=== PATIENT | male | born 1955 | race African-American/Black ===

== ENCOUNTER 2020-02-26 13:35 | Inpatient (IN) | payer MEDICAID, OTHER ==
[~2020-02-26] VITALS: Ht 177.8 cm; Wt 87.0 kg
[2020-02-26] MEDS ORDERED: IPRATROPIUM BROM 0.5 MG/2.5ML INH SOL NEB ONE (13:45)
[2020-02-26] MEDS ORDERED: methylPREDNISolone SOD SUCC 125 MG/2 ML VL IV ONE (13:45)
[2020-02-26] MEDS ORDERED: ALBUTEROL SULF 2.5 MG/0.5ML(0.5%) NEB SOLN NEB ONE (13:45)
[2020-02-26] MEDS ORDERED: SODIUM CHLORIDE 0.9% 1,000 ML IV ONE (13:45)
[2020-02-26] MEDS ORDERED: cefTRIAXone 1GM/50ML D5W 50 ML IV ONE (14:30)
[2020-02-26 16:10] LABS: Basophils # (auto) 0 10 ^3/uL (0-0.2); Basophils % (auto) 0.5 % (0.0-2.0); Eosinophils # (auto) 0.2 10 ^3/uL (0-0.8); Eosinophils % (auto) 2.5 % (0.0-7.0); Hematocrit 36.1 % (41.0-53.0); Hemoglobin 11.6 g/dL (13.5-17.5); Lymphocytes # (auto) 1.7 10 ^3/uL (0.4-5.4); Lymphocytes % (auto) 28.6 % (10.0-50.0); Mean Corpuscular Hemoglobin 27.3 pg (28.0-32.0); Mean Corpuscular Hgb Conc. 32.1 g/dL (32.0-36.0); Mean Corpuscular Volume 84.9 fL (80.0-100.0); Monocytes # (auto) 0.5 10 ^3/uL (0-1.3); Monocytes % (auto) 8.8 % (0.0-12.0); Neutrophils # (auto) 3.6 10 ^3/uL (1.6-8.6); Neutrophils % (auto) 59.6 % (37.0-80.0); Platelet Count (auto) 357 10^3/uL (140-450); Red Blood Cells 4.25 10^6/uL (4.5-5.90)
[2020-02-26 16:26] LABS: Albumin 3.3 g/dL (3.4-5.0); Anion Gap 6 (5-15); Blood Urea Nitrogen 10 mg/dL (7-18); Calcium 8.6 mg/dL (8.5-10.1); Carbon Dioxide 31 mmol/L (21-32); Chloride 106 mmol/L (98-107); Glucose 102 mg/dL (74-106); Sodium 143 mmol/L (136-145)
[2020-02-26 16:35] LABS: Alanine Aminotransferase 14 U/L (16-61); Alkaline Phosphatase 80 U/L (45-117); Aspartate Aminotransferase 6 U/L (15-37); BUN/Creatinine Ratio 9.3; Bilirubin, Total 0.4 mg/dL (0.2-1.0); CRP High Sensitivity 1.59 mg/dL (< 0.3); GFR African American 89 mL/min; GFR Non-African American 74 mL/min; Lactate Dehydrogenase 155 U/L (87-241)
[2020-02-26 16:38] LABS: INR 0.97 (0.9-1.15); Partial Thromboplastin Time 27.6 sec (23.0-31.2)
[2020-02-26] MEDS ORDERED: POTASSIUM EFFERVESENT TAB 25 MEQ PO ONE (18:15)
[2020-02-26] MEDS ORDERED: POTASSIUM CHL 20MEQ/100ML 100 ML IV ONE (18:30)
[2020-02-26] MEDS ORDERED: ONDANSETRON HCL 4 MG/2 ML VIAL IV PRN (18:30)
[2020-02-26] MEDS ORDERED: levoFLOXacin 750MG 150 ML IV SCH (18:30)
[2020-02-26] MEDS ORDERED: NITROGLYCERIN 0.4 MG SL TAB SL PRN (18:30)
[2020-02-26] MEDS ORDERED: HYDROcodone-ACET 5/325MG TAB PO PRN (18:30)
[2020-02-26] MEDS ORDERED: hydrALAZINE HCL 20 MG/ML VL IV PRN (18:30)
[2020-02-26] MEDS ORDERED: MORPHINE SULF INJ 2 MG/ML SYRINGE 1ML IV PRN (18:30)
[2020-02-26] MEDS ORDERED: ACETAMINOPHEN 325 MG TAB PO PRN (18:30)
[2020-02-26 19:14] VITALS: BP 157/94
[2020-02-26] MEDS: amLODIPine BESYLATE 5 MG TAB PO SCH (20:58)
[2020-02-26] MEDS: levoFLOXacin 750MG 150 ML IV SCH (22:04)
[2020-02-26 22:30] VITALS: BP 163/92
[2020-02-26 22:40] VITALS: BP 163/92
--- NOTE | 2020-02-26 22:40 | NUR ---
Telemetry admit from ER LIGIA LEE admitted to Telemetry unit. Patient oriented to PARVIZ FUENTES, primary RN, unit, room, bed, and unit policies regarding patient care and visiting hours. Patient now on continuous telemetry monitoring, tele box #11 and telemetry reading on arrival to unit is sinus tachyardia. Patient placed on bedside oxygen 2l nasal cannula, weighed by bed scale and encouraged to call if they need something. All questions and concerns addressed, patient verbalized understanding .pt is aox4 no s/s of distress, sob or pain noted
--- NOTE | 2020-02-26 23:00 | NUR ---
PT STATES FAMILY WILL BRING A LIST OF HOME MEDICATION TOMORROW WILL ENDORSE TO DAY SHIFT
--- NOTE | 2020-02-26 23:16 | NUR ---
AT BEDSIDE IN FULL PPE, TO ASSESS PT. PT ON 4LPM VIA NC POX 100% TITRATED FIO2 TO 2LPM VIA NC. RN PARVIZ AT BEDSIDE AND COMMUNICATED ON O2 CHANGE.
--- NOTE | 2020-02-26 23:18 | NUR ---
Called/paged called re:blood pressure . Waiting for call back. Continue care.
--- NOTE | 2020-02-27 00:17 | NUR ---
returned call returned call, updated on patient status and reason for call,new orders received. read back and verify by Dr. Fowler Continue care.
[2020-02-27] MEDS ORDERED: LABETALOL HCL 5 MG/ML 4ML SYRINGE IV ONE (01:30)
--- NOTE | 2020-02-27 02:16 | NUR ---
CALLED TO BEDSIDE TO ASSESS PT DUE TO COMPLAINTS OF LUNG TIGHTNESS AND WHEEZING. ASSESSED PT NO WHEEZES HEARD, BS ARE DIMINISHED CLEAR T/O. POX 99% ON 2LPM VIA NC. EXPLAINED TO PT FINDINGS. PT NOTED TO BE ANXIOUS. COMMUNICATED JUSTIN JJ ON PTS FINDINGS.
[2020-02-27 05:00] VITALS: BP 147/93
--- NOTE | 2020-02-27 06:54 | NUR ---
end of shift notes will endorse care to day shift rn pt is a0x4, no s/s of distress, sob, and no pain
[2020-02-27 08:34] VITALS: BP 161/99
[2020-02-27] MEDS: methylPREDNISolone SOD SUCC 125 MG/2 ML VL IV SCH ×2 (08:41→22:06)
[2020-02-27] MEDS: amLODIPine BESYLATE 5 MG TAB PO SCH (08:42)
[2020-02-27] MEDS: CHOLECALCIFEROL (VITD3) 2,000 UNIT CAP PO SCH (08:43)
[2020-02-27] MEDS: ASCORBIC ACID 500 MG TAB PO SCH (08:43)
[2020-02-27] MEDS ORDERED: ZINC SULFATE 220mg CAP or TAB PO SCH (10:00)
[2020-02-27] MEDS: BUDESONIDE (INHALATION) 0.5 MG/2 ML NEB NEB SCH ×2 (10:00→20:58)
[2020-02-27 12:37] VITALS: BP 153/109
--- NOTE | 2020-02-27 12:45 | NUR ---
SPOKE TO Manpreet POTTER INFORMED OF PATIENT STATUS. INFORMED OF CURRENT VITALS AND PATIENTS MEDICATION. RECEIVED NEW ORDER. TORB. SEE EMAR. Addendum: 02/27/20 at 1318 by GERALD BOLAND RN RN DISREGARD TIME. CORRECT TIME 1304.
--- NOTE | 2020-02-27 12:51 | NUR ---
PER PHARMACY WE ARE ON BACK ORDER OF HYDRALAZINE IV. PAGED Kevin POTTER FOR NEW ORDERS. AWAITING CALL BACK.
[2020-02-27] MEDS ORDERED: METOPROLOL TARTRATE 25 MG TAB PO ONE (13:15)
--- NOTE | 2020-02-27 15:39 | NUR ---
ss consult Per ss consult no health insurance. Patient does have insurance [employer], it has been updated in system.m Addendum: 02/27/20 at 1540 by Ana WILKINS Amended: Links added.
--- NOTE | 2020-02-27 15:45 | NUR ---
Received reports from Simon ANDERSON [facility], patient is alert and oriented x4, not in respiratory distress, O2 sat on room air 94%. Patient has negative COVID19 test. Patient transferred to bed via wheelchair, oriented to floor policy. Telebox #[id number]. Patient is ambulatory. Will continue to monitor.
--- NOTE | 2020-02-27 15:54 | NUR ---
REPORT GIVEN TO JUSTIN GAY. TRANSPORTED VIA WHEELCHAIR. NO S/S OF DISTRESS NOTED.
[2020-02-27] MEDS ORDERED: NICOTINE 14 MG/24HR TOPICAL PATCH TD ONE (16:00)
[2020-02-27 17:00] VITALS: BP_SYST 141; BP_SYST 155; BP_DIAS 84; BP_DIAS 91
[2020-02-27] MEDS ORDERED: MET25T PO (17:06)
[2020-02-27] MEDS ORDERED: IPR002IS NEB (17:06)
[2020-02-27] MEDS ORDERED: LEVO500T21 PO (17:06)
[2020-02-27] MEDS ORDERED: FLUT100I IN (17:06)
[2020-02-27] MEDS ORDERED: ALB5IS NEB (17:06)
[2020-02-27] MEDS ORDERED: AML5T PO (17:06)
[2020-02-27] MEDS ORDERED: PRED20TA2 PO (17:06)
--- NOTE | 2020-02-27 17:10 | NUR ---
Patient requested for AMA to smoke and signed the consent. Patient out of bed at this time.
[2020-02-27 17:13] LABS: Basophils # (auto) 0 10 ^3/uL (0-0.2); Basophils % (auto) 0.1 % (0.0-2.0); Eosinophils # (auto) 0 10 ^3/uL (0-0.8); Lymphocytes # (auto) 0.7 10 ^3/uL (0.4-5.4)
[2020-02-27 17:14] LABS: Hematocrit 36.3 % (41.0-53.0); Hemoglobin 11.3 g/dL (13.5-17.5); Mean Corpuscular Hemoglobin 26.6 pg (28.0-32.0); Mean Corpuscular Hgb Conc. 31.1 g/dL (32.0-36.0); Mean Corpuscular Volume 85.4 fL (80.0-100.0); Monocytes # (auto) 0.4 10 ^3/uL (0-1.3); Monocytes % (auto) 3.4 % (0.0-12.0); Neutrophils # (auto) 10.6 10 ^3/uL (1.6-8.6); Neutrophils % (auto) 90.5 % (37.0-80.0); Nucleated Red Blood Cells % 0.1 %; Platelet Count (auto) 372 10^3/uL (140-450); Red Blood Cells 4.26 10^6/uL (4.5-5.90); Red Cell Distribution Width 19.8 % (11.8-14.3); White Blood Cell 11.7 10^3/uL (4.4-10.8)
[2020-02-27 17:28] LABS: BUN/Creatinine Ratio 14.6; Calcium 9.5 mg/dL (8.5-10.1); Potassium 4.4 mmol/L (3.5-5.1)
[2020-02-27 17:44] VITALS: BP 155/99
--- NOTE | 2020-02-27 18:00 | NUR ---
Patient maintained on NPO for CTA of the chest scheduled to be performed tonight. Patient verbalized understanding.
--- NOTE | 2020-02-27 18:25 | NUR ---
Telebox #11 returned to ICU and replaced with telebox #62 reading [id number]. Per patient he wanted the Nicotine patch applied before discharge.
--- NOTE | 2020-02-27 18:36 | NUR ---
O2 sat on room air 88%-90%, patient is complaining of SOB. O2 at 2lpm/nasal cannula administered and paged RT for breathing treatment.
[2020-02-27] MEDS ORDERED: IOHEXOL 350 MG/ML 100ML IJ ONE (19:23)
--- NOTE | 2020-02-27 19:45 | NUR ---
Opening Shift Note Assumed care of patient, awake and alert. A&Ox4. Patient laying in bed. No S/S of distress/SOB or pain. Safety measures maintained by keeping the bed locked in lowest position, 2 side rail up, personal items and call light within reach. Instructed on POC and to call for assist PRN, will continue to monitor for changes Q1hr and PRN.
--- NOTE | 2020-02-27 20:25 | NUR ---
PAGED TO BEDSIDE, SPOKE TO RN JOHN PT REQUESTING BREATHING TREATMENT.
--- NOTE | 2020-02-27 20:28 | NUR ---
Transportation for discharge Was told by patient and family member that patient will have transportation to leave hospital tomorrow 02/27 in the morning.
--- NOTE | 2020-02-27 20:30 | NUR ---
Mercedes JOHNSTON for pt transportation
--- NOTE | 2020-02-27 20:30 | NUR ---
AT BEDSIDE FOR BREATHING TREATMENT REQUESTED. PT COMFORTABLY SLEEPING. NO S/S OF DISTRESS NOTED MEDICAL. EMERGENCY CALLED OVERHEAD FOR DIFFERENT PT. WILL RETURN AT SCHEDULED MED [facility] [place] [address].
--- NOTE | 2020-02-27 20:35 | NUR ---
MD made aware of patient transportation for tomorrow morning. Was told by MD not to hold the discharge order. House Linnette Manuel and foreign diplomat Toy aware of discharge situation.
[2020-02-27] MEDS: ALBUTEROL SULF 2.5 MG/0.5ML(0.5%) NEB SOLN NEB PRN (20:58)
[2020-02-27] MEDS: IPRATROPIUM BROM 0.5 MG/2.5ML INH SOL NEB PRN (20:59)
[2020-02-27] MEDS: METOPROLOL TARTRATE 25 MG TAB PO SCH (22:07)
[2020-02-27] MEDS: levoFLOXacin 750MG 150 ML IV SCH (22:08)
[2020-02-27 22:17] VITALS: BP 138/79
[2020-02-28 05:09] VITALS: BP 140/86
[2020-02-28] MEDS: IPRATROPIUM BROM 0.5 MG/2.5ML INH SOL NEB PRN (06:41)
[2020-02-28] MEDS: BUDESONIDE (INHALATION) 0.5 MG/2 ML NEB NEB SCH (06:41)
[2020-02-28] MEDS: ALBUTEROL SULF 2.5 MG/0.5ML(0.5%) NEB SOLN NEB PRN (06:41)
--- NOTE | 2020-02-28 07:30 | NUR ---
Opening Shift Note Assumed care of patient, awake and alert. No S/S of distress/SOB or pain. Instructed on POC and to call for assist PRN, will continue to monitor for changes Q1hr and PRN. Patient has AMA to smoke and refusing to quit at this time after counseling provided. 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
[2020-02-28 08:00] VITALS: BP 146/94
[2020-02-28 08:08] VITALS: BP 136/88
[2020-02-28 09:00] VITALS: BP 146/94
[2020-02-28] MEDS ORDERED: NICOTINE 14 MG/24HR TOPICAL PATCH TD SCH (10:00)
[2020-02-28] MEDS: CHOLECALCIFEROL (VITD3) 2,000 UNIT CAP PO SCH (10:00)
[2020-02-28] MEDS: amLODIPine BESYLATE 5 MG TAB PO SCH (10:15)
[2020-02-28] MEDS: ASCORBIC ACID 500 MG TAB PO SCH (10:15)
[2020-02-28] MEDS: METOPROLOL TARTRATE 25 MG TAB PO SCH (10:16)
[2020-02-28] MEDS: methylPREDNISolone SOD SUCC 125 MG/2 ML VL IV SCH (10:18)
--- NOTE | 2020-02-28 10:22 | NUR ---
Spoke to MD MD Kevin Perales aware of patient's status including abnormal labs. MD notified pt is been picked up by taxi cab at 11. states to dc patient as ordered and f/u as outpatient. Patient made aware and verbalized understanding. Will dc as ordered.
--- NOTE | 2020-02-28 10:50 | NUR ---
Discharge instructions given as ordered. Encourage to follow up with PMD and Equipment Maintenance Supervisor as instructed. All questions and concerns addressed. Patient verbalized understanding. Medication reconciliation form completed and copy given to patient. 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 IV removed with catheter intact, pressure dressing applied. Telemetry unit returned to ICU. Patient ambulated to [facility] where taxi cab is waiting to drop him off at his [facility] house and nephew will drop off at home in [place]" [facility] address [id number] [address] [address]. Patient ambulated in no distress independently and room air with all personal belongings, accompanied by staff. No distress noted at time of departure.
[2020-02-28] MEDS ORDERED: predniSONE 20 MG TAB PO ONE (12:00)
[2020-02-29] MEDS ORDERED: predniSONE 20 MG TAB PO SCH (10:00)
== END 2020-02-28 10:56 | disposition home or self-care (01) | DRG 140 ==
LOC: EDBD 13:35 → ER 13:35 → TELE 13:36 → TELE-EAST 22:25 → TELE-WESTW 02-27 15:47
PROVIDERS: ADMIT Internal Medicine; ATTEND Internal Medicine
DX: J44.0 Chronic obstructive pulmonary disease with (acute) lower respiratory infection (principal); J18.9 Pneumonia, unspecified organism; J45.901 Unspecified asthma with (acute) exacerbation; E66.9 Obesity, unspecified; E87.6 Hypokalemia; I10 Essential (primary) hypertension; I70.0 Atherosclerosis of aorta; J44.1 Chronic obstructive pulmonary disease with (acute) exacerbation; T38.0X5A Adverse effect of glucocorticoids and synthetic analogues, initial encounter; T48.6X5A Adverse effect of antiasthmatics, initial encounter; Z20.828 Contact with and (suspected) exposure to other viral communicable diseases; Y92.89 Other specified places as the place of occurrence of the external cause; Z68.36 Body mass index [BMI] 36.0-36.9, adult; D72.829 Elevated white blood cell count, unspecified; R00.0 Tachycardia, unspecified
CPT/HCPCS: 36415; 71045; 71275; 80048; 80053; 82728; 83615; 83880; 84484; 85025; 85379; 85610; 85730; 86141; 87426; 93970; 94640; G0378; J0696; J1956; J3480; J3490